=== PATIENT | male | born 1980 | race Caucasian/White ===

== ENCOUNTER 2023-07-26 21:46 | Emergency (ER) | payer OTHER ==
[2023-07-26 21:58] VITALS: RESP 18; TEMP 98.3
[2023-07-26 22:00] VITALS: BP 142/77; PULSE 65; BMI 24.4
[2023-07-26] MEDS ORDERED: BUPRENORPHINE/NALOXONE 8 MG/2 MG FILM PACKET SL ONE (22:29)
[2023-07-26] MEDS ORDERED: BUPRENORPHINE/NALOXONE 8 MG/2 MG FILM PACKET ONE (22:31)
[2023-07-26] MEDS ORDERED: ACETAMINOPHEN 1000 MG/100 ML BAG IVPB ONE (23:08)
[2023-07-26] MEDS ORDERED: ACETAMINOPHEN INJECTION 100 ML IVPB ONE (23:54)
[2023-07-27 00:18] LABS: BASO % 0.7 % (0-2.0); EOS % 1.4 % (0-4.5); HEMATOCRIT 33.4 % (35.4-49); HEMOGLOBIN 11.4 GM/dL (11.7-16.9); LYMPH % 17.2 % (8-40); MCH 28.3 pg (25.7-33.7); MCHC 34.1 g/dl (32.0-35.9); MEAN CELL VOLUME 82.9 fl (80-96); MEAN PLT VOLUME 8.8 fl (7.5-11.1); MONO % 9.4 % (3.8-10.2); NEUT % 71.3 % (42.8-82.8); PLATELET COUNT 171 10^3/uL (134-434); RBC 4.03 M/mm3 (4.00-5.60); RDW 14.1 % (11.9-15.9); WHITE BLOOD COUNT 7.3 K/mm3 (4.0-10.0)
[2023-07-27 01:17] LABS: POTASSIUM 3.8 mmol/L (3.5-5.1)
[2023-07-27 01:19] LABS: BLOOD UREA NITROGEN 17.8 mg/dL (7-18); CALCIUM 8.1 mg/dL (8.5-10.1)
[2023-07-27 01:23] LABS: CREATININE 0.8 mg/dL (0.55-1.3)
[2023-07-27 01:24] LABS: BILIRUBIN,TOTAL 0.2 mg/dL (0.2-1); TOT PROT 5.7 g/dl (6.4-8.2)
== END 2023-07-27 02:09 | disposition home or self-care (01) ==
LOC: JER 21:46
PROC: 3E033NZ Introduction of Analgesics, Hypnotics, Sedatives into Peripheral Vein, Percutaneous Approach (ICD-10-PCS; principal; 2023-07-26)
DX: R06.02 Shortness of breath (principal); R07.89 Other chest pain; F11.23 Opioid dependence with withdrawal
CPT/HCPCS: 36415; 71111-TC-FY; 80053; 84484; 85025; 93005; 93010; 99285-25